=== PATIENT | male | born 1970 | race Caucasian/White ===

== ENCOUNTER 2017-02-09 14:53 | Observation (INO) | payer SELFPAY ==
--- NOTE | 2017-02-09 15:51 | C.PDOC ---
History Of Present Illness <Haylee Corcoran - Last Filed: 02/09/17 19:03> <CliftonJenna - Last Filed: 02/09/17 20:57> Patient is a 47 y/o male that is brought to the ER by for evaluation of alcohol intoxication. As per , patient used to drink heavily, but had stopped drinking 5 years ago. states that when she returned from her trip, she found the patient intoxicated, and noted that pt had defecated on himself, and was also surrounded with vomit next to him. As per , patient had verbalized that he wanted detox. HPI limited due to intoxication. (Haylee Corcoran) History Per: Family () History/Exam Limitations: no limitations Current Symptoms Are (Timing): Still Present Suicide/Self Injury Attempted (Context): None Modifying Factor(s): Alcohol Involuntary Hold By: None Recent travel outside of the [place]: No <Haylee Corcoran - Last Filed: 02/09/17 19:03> <CliftonJenna - Last Filed: 02/09/17 20:57> Time Seen by Provider: 02/09/17 15:21 Chief Complaint (Nursing): Substance Abuse Past Medical History Reviewed: Historical Data, Nursing Documentation, Vital Signs - Medical History PMH: HTN Family History: States: Unknown Family Hx - Social History Hx Tobacco Use: No Hx Alcohol Use: Yes Hx Substance Use: No - Immunization History Hx Tetanus Toxoid Vaccination: Yes Hx Influenza Vaccination: No Hx Pneumococcal Vaccination: No <Haylee Corcoran - Last Filed: 02/09/17 19:03> Vital Signs: Last Vital Signs Temp 97.9 F 02/09/17 19:51 Pulse 99 H 02/09/17 19:51 Resp 20 02/09/17 19:51 BP 154/89 H 02/09/17 19:51 Pulse Ox 98 02/09/17 19:51 Review Of Systems Review Of Systems: ROS cannot be obtained secondary to pt's inabilty to answer questions. Constitutional: Positive for: Other (intoxication) <Haylee Corcoran - Last Filed: 02/09/17 19:03> Physical Exam - Physical Exam Appears: Other (intoxicated) Skin: Normal Color, Warm, Dry Head: Atraumatic, Normacephalic, Abrasion (abrasion on forehead) Eye(s): bilateral: Normal Inspection Neck: Supple Chest: Symmetrical Cardiovascular: Rhythm Regular Respiratory: Normal Breath Sounds, No Rales, No Rhonchi, No Wheezing Gastrointestinal/Abdominal: Soft, No Tenderness Neurological/Psych: No Response To Commands <Haylee Corcoran - Last Filed: 02/09/17 19:03> ED Course And Treatment - Laboratory Results Result Diagrams: 02/09/17 16:09 02/09/17 16:09 - CT Scan/US Head CT Other Rad Studies (CT/US): Read By Radiologist, Radiology Report Reviewed CT/US Interpretation: FINDINGS: HEMORRHAGE: No intracranial hemorrhage. BRAIN : No mass effect or edema. Mild diffuse atrophy. Mild periventricular chronic white matter ischemic change. Consistent with patient age. VENTRICLES: Unremarkable. No hydrocephalus. CALVARIUM: Unremarkable. PARANASAL SINUSES : Unremarkable as visualized. No significant inflammatory changes. MASTOID AIR CELLS: Unremarkable as visualized. No inflammatory changes. OTHER FINDINGS : None. IMPRESSION: Mild atrophy and chronic periventricular white matter ischemic change. No intracranial mass, hemorrhage or evidence of acute infarct. Progress Note: Labs, head CT ordered and reviewed. On reassessment, patient is resting comfortably in bed, with no acute distress. <Haylee Corcoran - Last Filed: 02/09/17 19:03> - Laboratory Results Result Diagrams: 02/09/17 16:09 02/09/17 16:09 <Jenna Lazo - Last Filed: 02/09/17 20:57> ED OBSERVATION Date of observation admission: 02/09/17 Time of observation admission: 15:50 <Haylee Corcoran - Last Filed: 02/09/17 19:03> Discharge: Yes <Jenna Lazo - Last Filed: 02/09/17 20:57> - Observation admission statement Patient is being placed in observation because:: Alcohol intoxication (Haylee Corcoran) - Goals of Observation Goals of observation are:: sober up in the safe environment (Haylee Corcoran) - Progress Note Progress Note: 02/09/17 20:56 CLEAR SPEECH STEADY GAIT, NO S/S ACUTE INTOX. @ BEDSIDE, WILL TAKE PT HOME. PT @ BASELINE (Jenna Lazo) Disposition - Disposition Disposition Time: 15:49 <Haylee Corcoran - Last Filed: 02/09/17 19:03> Counseled Patient/Family Regarding: Studies Performed, Diagnosis - Disposition Disposition Time: 20:57 <Jenna Lazo - Last Filed: 02/09/17 20:57> - Disposition Disposition: HOME/ ROUTINE Condition: IMPROVED - Clinical Impression Clinical Impression: Alcohol abuse - PA / [employer] COMMISSIONER / Resident Statement MD/DO has reviewed & agrees with the documentation as recorded. - Scribe Statement The provider has reviewed the documentation as recorded by the Scribe <Haylee Corcoran - Last Filed: 02/09/17 19:03> <Jenna Lazo - Last Filed: 02/09/17 20:57> - Scribe Statement Alpa Uerña All medical record entries made by the Scribe were at my direction and personally dictated by me. I have reviewed the chart and agree that the record accurately reflects my personal performance of the history, physical exam, medical decision making, and the department course for this patient. I have also personally directed, reviewed, and agree with the discharge instructions and disposition. (Haylee Corcoran) Physician Patient Turnover Patient Signed Over To: Jenna Lazo Handoff Comments: sobriety, dispo <Haylee Corcoran - Last Filed: 02/09/17 19:03>
[2017-02-09 16:12] LABS: BASO % 0.6 % (0.0-2.0); EOS % 0.2 % (0.0-4.0); HEMATOCRIT 48.1 % (35.0-51.0); LYMPH # 1.3 K/uL (1.0-4.3); LYMPH % 27.7 % (20.0-40.0); MEAN CELL VOLUME 83.8 fL (80.0-94.0); MEAN CORPUSCULAR HEMOGLOBIN 27.9 pg (27.0-31.0); MEAN CORPUSCULAR HGB CONC 33.3 g/dL (33.0-37.0); MEAN PLATELET VOLUME 8.8 fL (7.2-11.7); MONO # 0.2 K/uL (0.0-0.8); MONO % 3.6 % (0.0-10.0); NRBC % 0.4 % (0.0-2.0); RED CELL DISTRIBUTION WIDTH 13.2 % (11.5-14.5); WHITE BLOOD COUNT 4.6 K/uL (4.8-10.8)
[2017-02-09 16:17] LABS: RBC URINE < 1 /hpf (0-3); URINE BACTERIA RARE (<OCC); URINE BILIRUBIN NEGATIVE (NEGATIVE); URINE BLOOD 2+ (NEGATIVE); URINE COLOR Yellow (YELLOW); URINE GLUCOSE (UA) NORMAL (Normal); URINE KETONE TRACE mg/dL (NEGATIVE); URINE LEUKOCYTE ESTERASE TRACE Leu/uL (Negative); URINE PROTEIN 2+ mg/dL (NEGATIVE); URINE UROBILINOGEN NORMAL mg/dL (0.2-1.0); WBC URINE 10 /hpf (0-5)
[2017-02-09 16:25] LABS: CHLORIDE 95 mmol/L (98-107)
[2017-02-09 16:26] LABS: POTASSIUM 3.5 mmol/L (3.6-5.2); SODIUM 143 mmol/L (132-148)
[2017-02-09 16:28] LABS: ALB/GLOB RATIO 1.2 (1.0-2.1); AST/SGOT 139 U/L (17-59); BILIRUBIN,TOTAL 0.4 mg/dL (0.2-1.3); CARBON DIOXIDE 23 mmol/L (22-30); GFR AFRICAN-AMERICAN > 60; TOTAL PROTEIN 8.2 g/dL (6.3-8.3)
[2017-02-09 16:29] LABS: ALKALINE PHOSPHATASE 95 U/L (38-126); ALT/SGPT 98 U/L (21-72); BLOOD UREA NITROGEN 10 mg/dL (9-20); GLUCOSE,RANDOM 124 mg/dL (75-110)
[2017-02-09 17:15] LABS: ALCOHOL SERUM 432 mg/dl (0-10)
--- NOTE | 2017-02-09 17:44 | CT ---
PROCEDURE: CT HEAD WITHOUT CONTRAST. HISTORY: ETOH, possible head injury, forehead abrasion COMPARISON: None available. TECHNIQUE: Axial computed tomography images were obtained through the head/brain without intravenous contrast. Radiation dose: Total exam DLP = 963.97 mGy-cm. FINDINGS: HEMORRHAGE: No intracranial hemorrhage. BRAIN: No mass effect or edema. Mild diffuse atrophy. Mild periventricular chronic white matter ischemic change. Consistent with patient age. VENTRICLES: Unremarkable. No hydrocephalus. CALVARIUM: Unremarkable. PARANASAL SINUSES: Unremarkable as visualized. No significant inflammatory changes. MASTOID AIR CELLS: Unremarkable as visualized. No inflammatory changes. OTHER FINDINGS: None. IMPRESSION: Mild atrophy and chronic periventricular white matter ischemic change. No intracranial mass, hemorrhage or evidence of acute infarct.
[2017-02-09] MEDS ORDERED: Sodium Chloride 0.9% 1,000 ML IV STA (19:04)
[2017-02-09 19:51] VITALS: BP 154/89; PULSE 99; RESP 20; TEMP 97.9; O2SAT 98
== END 2017-02-09 20:57 | disposition home or self-care (01) ==
LOC: C.ER 14:53 → C.9OBSV 15:49
PROVIDERS: ADMIT Emergency Medicine; ATTEND Emergency Medicine
DX: F10.129 Alcohol abuse with intoxication, unspecified (principal); I10 Essential (primary) hypertension; Z68.41 Body mass index [BMI] 40.0-44.9, adult; Y90.8 Blood alcohol level of 240 mg/100 ml or more
CPT/HCPCS: 36415; 70450; 80053; 81001; 85025; 96360; 99284; G0378; G0480